=== PATIENT | male | born 1995 ===

== ENCOUNTER 2018-02-17 14:16 | Emergency (ER) | payer OTHER ==
[2018-02-17 14:29] VITALS: BP 113/64; PULSE 64; RESP 18; TEMP 98.4; O2SAT 100
--- NOTE | 2018-02-17 15:00 | C.PDOC ---
History Of Present Illness [employer] Giuseppe # [id number] 22 year old male with no significant medical history presents for 1-2 months of rash and generalized body itching. Patient moved from the [place] in November and the itching started a few weeks later. Patient lives with mother who does not have these symptoms. Patient denies any changes in his soaps, shampoos, or detergents. Patient has not noticed any bugs in his room or bed. Patient has no pets. Patient has not been camping or hiking recently. Patient has been switching his bed sheets every night worried that he is sensitive to the material. Patient denies any fevers, shortness of breath, sore throat, joint pain, penile discharge, or lesions. Patient has used Calamine lotion with little relief. Patient has taken no PO medications. Time Seen by Provider: 02/17/18 14:39 Chief Complaint (Nursing): Abnormal Skin Integrity History Per: Patient History/Exam Limitations: language barrier Onset/Duration Of Symptoms: Days Current Symptoms Are (Timing): Still Present Quality Of Symptoms: Itching Severity: Moderate Additional History Per: Patient Past Medical History Vital Signs: Last Vital Signs Temp 98.4 F 02/17/18 14:27 Pulse 64 02/17/18 14:27 Resp 18 02/17/18 14:27 BP 113/64 02/17/18 14:27 Pulse Ox 100 02/17/18 14:27 - Medical History PMH: No Chronic Diseases Family History: States: No Known Family Hx - Social History Hx Tobacco Use: No Hx Alcohol Use: No Hx Substance Use: No - Immunization History Hx Tetanus Toxoid Vaccination: Yes Hx Influenza Vaccination: Yes Hx Pneumococcal Vaccination: No Review Of Systems Constitutional: Negative for: Fever, Chills Cardiovascular: Negative for: Chest Pain Respiratory: Negative for: Cough, Shortness of Breath Gastrointestinal: Negative for: Nausea, Vomiting, Abdominal Pain, Diarrhea, Constipation Genitourinary: Negative for: Dysuria, Penile Discharge Skin: Positive for: Rash, Other (pruritus) Physical Exam - Physical Exam Appears: Non-toxic, No Acute Distress Skin: Warm, Dry, Rash (mild erythema on arms, hands, legs, no pustules/vesicles/macules), Other (excoriations throughout) Head: Atraumatic, Normacephalic Throat: Normal, No Erythema Chest: Symmetrical Cardiovascular: Rhythm Regular Respiratory: Normal Breath Sounds Neurological/Psych: Oriented x3 ED Course And Treatment O2 Sat by Pulse Oximetry: 100 Medical Decision Making Medical Decision Making: Impression: Contact Dermatitis/ Skin irritation patient given Benadryl and prescription for Medrol dose pack patient stable for discharge patient to follow up in the clinic Disposition - Disposition Referrals: [facility] [Outside] [facility] [Outside] Disposition: HOME/ ROUTINE Disposition Time: 15:15 Condition: GOOD Additional Instructions: MERON BRANCH, thank you for letting us take care of you today. Your provider was Pema Jenkins MD and you were treated for MED CLEAR. The emergency medical care you received today was directed at your acute symptoms. If you were prescribed any medication, please fill it and take as directed. It may take several days for your symptoms to resolve. Return to the Emergency Department if your symptoms worsen, do not improve, or if you have any other problems. Please contact your doctor or call one of the physicians/clinics you have been referred to that are listed on the Patient Visit Information form that is included in your discharge packet. Bring any paperwork you were given at discharge with you along with any medications you are taking to your follow up visit. Our treatment cannot replace ongoing medical care by a primary care provider outside of the emergency department. Thank you for allowing the [facility] team to be part of your care today. Prescriptions: Methylprednisolone [Medrol Dose Pack (21 tabs)] See Taper PO DAILY #21 mg Instructions: Skin Rash (DC) Forms: [employer] (Maori) Print Language: PORTUGUESE - Clinical Impression Clinical Impression: Skin irritation
== END 2018-02-17 15:34 | disposition home or self-care (01) ==
LOC: C.ER 14:16
DX: L98.9 Disorder of the skin and subcutaneous tissue, unspecified (principal)